=== PATIENT | female | born 1950 | race Caucasian/White ===

== ENCOUNTER 2021-04-10 14:29 | Emergency (ER) | payer MEDICARE ==
--- NOTE | 2021-04-10 14:58 | EDM.PDOC ---
ED HPI GENERAL MEDICAL PROBLEM - General Chief Complaint: Cardiovascular Problem Stated Complaint: BP ISSUE S Time Seen by Provider: 04/10/21 14:50 Source of Information: Reports: Patient, Old Records, RN Notes Reviewed History Limitations: Reports: No Limitations - History of Present Illness INITIAL COMMENTS - FREE TEXT/NARRATIVE: 70-year-old female presents to the emergency department today with complaint of blood pressure problem. She states she has had blood pressure problems in the clinic for over the last year blood pressure has been running 160 170 systolic. She took her blood pressure today and noticed it was well over 200 she feels somewhat dizzy fall in the head elevated blood pressure no other symptoms at this time - Related Data Allergies Allergy/AdvReac Type Severity Reaction Status Date / Time ibuprofen Allergy Severe Difficulty Verified 04/10/21 14:42 Breathing Penicillins Allergy Hives Verified 04/10/21 14:43 Home Meds: Home Meds Aspirin 325 mg PO BID PRN 02/17/15 [History] [place]-3 Fatty Acids/Fish Oil [Fish Oil 1,000 mg Capsule] 1 cap PO DAILY 09/15/20 [History] lisinopriL [Lisinopril] 10 mg PO DAILY #30 tablet 04/10/21 [Rx] Past Medical History Cardiovascular History: Reports: Hypertension - Past Surgical History Other HEENT Surgeries/Procedures: lasik Social & Family History - Tobacco Use Tobacco Use Status *Q: Never Tobacco User - Alcohol Use Number of Drinks Per Day: 1 - Recreational Drug Use Recreational Drug Use: Yes Recreational Drug Type: Reports: Marijuana/Hashish Recreational Drug Use Frequency: Daily ED ROS GENERAL - Review of Systems Review Of Systems: See Below Constitutional: Reports: No Symptoms HEENT: Reports: No Symptoms Respiratory: Reports: No Symptoms Cardiovascular: Reports: Blood Pressure Problem, Lightheadedness GI/Abdominal: Reports: No Symptoms ED EXAM, GENERAL - Physical Exam Exam: See Below Exam Limited By: No Limitations General Appearance: Alert, WD/WN, No Apparent Distress Respiratory/Chest: No Respiratory Distress, Lungs Clear, Normal Breath Sounds, No Accessory Muscle Use, Chest Non-Tender Cardiovascular: Regular Rate, Rhythm, No Murmur GI/Abdominal: Soft, Non-Tender Course - Vital Signs Last Recorded V/S: Last Vital Signs Temp 97.6 F 04/10/21 14:47 Pulse 64 04/10/21 15:52 Resp 11 L 04/10/21 15:52 BP 153/71 H 04/10/21 16:00 Pulse Ox 99 04/10/21 14:47 - Orders/Labs/Meds Orders: Active Orders 24 hr Category Date Time Status Cardiac Monitoring [RC] .As Directed Care 04/10/21 14:56 Active Peripheral IV Care [RC] . DIRECTED Care 04/10/21 14:56 Active Sodium Chloride 0.9% [Saline Flush] Med 04/10/21 14:56 Active 10 ml FLUSH ASDIRECTED PRN Peripheral IV Insertion Adult [OM.PC] Stat Oth 04/10/21 14:56 Ordered Saline Lock Insert [OM.PC] Stat Oth 04/10/21 14:56 Ordered EKG 12 Lead [EK] Stat Ther 04/10/21 14:56 Ordered Medication Orders Sodium Chloride (Sodium Chloride 0.9% 10 Ml Syringe) 10 ml FLUSH ASDIRECTED PRN PRN Reason: Keep Vein Open Last Admin: 04/10/21 15:05 Dose: 10 ml Documented by: ARIN Labs: Laboratory Tests 04/10/21 04/10/21 04/10/21 Range/Units 15:00 15:00 15:05 WBC 5.3 (4.5-11.0) K/uL RBC 4.29 (3.30-5.50) M/uL Hgb 13.0 (12.0-15.0) g/dL Hct 40.5 (36.0-48.0) % MCV 94 (80-98) fL MCH 30 (27-31) pg MCHC 32 (32-36) % Plt Count 292 (150-400) K/uL Neut % (Auto) 50.4 (36-66) % Lymph % (Auto) 35.4 (24-44) % Jerome % (Auto) 10.6 H (2-6) % Eos % (Auto) 2.8 (2-4) % Baso % (Auto) 0.8 (0-1) % Sodium 142 (140-148) mmol/L Potassium 4.3 (3.6-5.2) mmol/L Chloride 104 (100-108) mmol/L Carbon Dioxide 28 (21-32) mmol/L Anion Gap 10.0 (5.0-14.0) mmol/L BUN 14 (7-18) mg/dL Creatinine 0.8 (0.6-1.0) mg/dL Est Cr Clr Drug Dosing 47.97 mL/min Estimated GFR (MDRD) > 60 (>60) Glucose 100 (74-106) mg/dL Calcium 9.1 (8.5-10.1) mg/dL Total Bilirubin 0.3 (0.2-1.0) mg/dL AST 15 (15-37) U/L ALT 21 (12-78) U/L Alkaline Phosphatase 51 (46-116) U/L Troponin I < 0.017 (0.000-0.056) ng/mL Total Protein 6.9 (6.4-8.2) g/dL Albumin 3.8 (3.4-5.0) g/dL Globulin 3.1 (2.3-3.5) g/dL Albumin/Globulin Ratio 1.2 (1.2-2.2) Urine Color Yellow (YELLOW) Urine Appearance Clear (CLEAR) Urine pH 7.0 (5.0-8.0) Ur Specific [place] >= 1.030 (1.008-1.030) Urine Protein Negative (NEGATIVE) mg/dL Urine Glucose (UA) Negative (NEGATIVE) mg/dL Urine Ketones Negative (NEGATIVE) mg/dL Urine Occult Blood Negative (NEGATIVE) Urine Nitrite Negative (NEGATIVE) Urine Bilirubin Negative (NEGATIVE) Urine Urobilinogen 0.2 (0.2-1.0) EU/dL Ur Leukocyte Esterase Negative (NEGATIVE) Urine RBC Not seen (0-5) Urine WBC Not seen (0-5) Ur Epithelial Cells Few Urine Bacteria Rare Urine Mucus Rare Meds: Medications Generic Name Dose Route Start Last Admin Trade Name [place] PRN Reason Stop Dose Admin Sodium Chloride 10 ml 04/10/21 14:56 04/10/21 15:05 Sodium Chloride 0.9% 10 Ml Syringe FLUSH 10 ml ASDIRECTED PRN Administration Keep Vein Open Discontinued Medications Generic Name Dose Route Start Last Admin Trade Name Freq PRN Reason Stop Dose Admin Enalaprilat 1.25 mg 04/10/21 15:35 04/10/21 15:56 Enalaprilat 1.25 Mg/Ml Sdv IVPUSH 04/10/21 15:36 Not Given ONETIME ONE Lisinopril 10 mg 04/10/21 15:55 04/10/21 16:00 Lisinopril 10 Mg Tab PO 04/10/21 15:56 10 mg ONETIME ONE Administration Departure - Departure Time of Disposition: 16:53 Disposition: Home, Self-Care 01 Condition: Fair Clinical Impression: Essential hypertension Prescriptions: lisinopriL [Lisinopril] 10 mg PO DAILY #30 tablet Instructions: Preventing Hypertension, Hypertension, Adult Referrals: PCP,None [Primary Care Provider] - Forms: ED Department Discharge Additional Instructions: Start your lisinopril tomorrow, please make an appointment to follow-up with your primary care in the next 5 to 7 days, call return to the emergency department worsening symptoms Sepsis Event Note (ED) - Evaluation Sepsis Screening Result: No Definite Risk - Focused Exam Vital Signs: Vital Signs Temp Pulse Resp BP BP Pulse Ox 04/10/21 16:00 153/71 H 04/10/21 15:56 153/71 H 04/10/21 15:52 64 11 L 153/71 H 04/10/21 15:10 68 15 183/89 H 04/10/21 14:47 97.6 F 81 14 228/91 H 99 04/10/21 14:42 97.6 F 81 14 228/91 H 99 - My Orders Last 24 Hours: My Active Orders 04/10/21 14:56 Cardiac Monitoring [RC] .As Directed Peripheral IV Care [RC] . DIRECTED Sodium Chloride 0.9% [Saline Flush] 10 ml FLUSH ASDIRECTED PRN Peripheral IV Insertion Adult [OM.PC] Stat Saline Lock Insert [OM.PC] Stat EKG 12 Lead [EK] Stat - Assessment/Plan Last 24 Hours: My Active Orders 04/10/21 14:56 Cardiac Monitoring [RC] .As Directed Peripheral IV Care [RC] . DIRECTED Sodium Chloride 0.9% [Saline Flush] 10 ml FLUSH ASDIRECTED PRN Peripheral IV Insertion Adult [OM.PC] Stat Saline Lock Insert [OM.PC] Stat EKG 12 Lead [EK] Stat Plan: Assessment Acuity = acute Site and laterality = essential hypertension Etiology = unknown Manifestations = none Location of injury = Home Lab values = CBC, CMP, troponin all within normal limits EKG demonstrates normal sinus rhythm no ST elevations or depressions Plan Her blood pressure initially fell by itself from 2 30-1 70 started lisinopril 10 mg once a day prescription faxed to [facility] pharmacy she will follow-up with primary care in the next 5 to 7 days This note was dictated using [employer] voice recognition software please call with any questions on syntax or grammar.
[2021-04-10] MEDS: Sodium Chloride 0.9% 10 ML Syringe FLUSH PRN (15:05)
[2021-04-10] MEDS: Enalaprilat 1.25 MG/ML SDV IVPUSH ONE (15:56)
[2021-04-10] MEDS: Lisinopril 10 MG Tab PO ONE (16:00)
[2021-04-10 16:57] VITALS: BP 162/73; PULSE 65
== END 2021-04-10 17:09 | disposition home or self-care (01) ==
LOC: JP.ED 14:29
DX: I10 Essential (primary) hypertension (principal); Z88.6 Allergy status to analgesic agent; Z88.0 Allergy status to penicillin; Z79.82 Long term (current) use of aspirin; Z79.899 Other long term (current) drug therapy
CPT/HCPCS: 36415; 80053; 81001; 84484; 85025; 93005; 99283; A9270

== ENCOUNTER 2024-04-29 10:11 | Emergency (ER) | payer MEDICARE ==
[2024-04-29 11:09] LABS: BASOPHILS ABSOLUTE AUTO 0.05 K/uL (0.00-0.10); BASOPHILS PERCENT AUTO 0.7 % (0.1-1.3); EOSINOPHILS ABSOLUTE AUTO 0.08 K/uL (0.00-0.40); EOSINOPHILS PERCENT AUTO 1.1 % (0.0-5.4); HEMATOCRIT 39.5 % (34.3-46.0); IMMATURE GRAN ABSOLUTE AUTO 0.04 K/uL (0.00-0.23); IMMATURE GRAN PERCENT AUTO 0.6 % (0.0-0.7); LYMPHOCYTES ABSOLUTE AUTO 1.61 K/uL (0.8-3.3); LYMPHOCYTES PERCENT AUTO 23.1 % (11.4-47.7); MEAN CORPUSCULAR HEMOGLOBIN 31.4 pg (31.6-35.5); MEAN CORPUSCULAR HGB CONC 32.9 g/dL (31.6-35.5); MEAN CORPUSCULAR VOLUME 95.4 fL (81.4-99.0); MONOCYTES ABSOLUTE AUTO 0.57 K/uL (0.20-0.90); MONOCYTES PERCENT AUTO 8.2 % (3.3-12.6); NEUTROPHILS ABSOLUTE AUTO 4.63 K/uL (1.0-7.6); NEUTROPHILS PERCENT AUTO 66.3 % (40.0-78.1); PLATELET COUNT,PLT 242 K/uL (130-375); RED BLOOD CELL COUNT 4.14 M/uL (3.77-5.24)
[2024-04-29 11:30] LABS: A/G RATIO 1.1 (1.2-2.2); ALANINE AMINOTRANSFERASE,ALT 17 U/L (12-78); ALBUMIN 3.9 g/dL (3.4-5.0); ALKALINE PHOSPHATASE 53 U/L (46-116); ASPARTATE AMNIOTRANSFERASE,AST 14 U/L (15-37); BILIRUBIN TOTAL 0.7 mg/dL (0.2-1.0); BLOOD UREA NITROGEN,BUN 26 mg/dL (7-18); CALCIUM 9.4 mg/dL (8.5-10.1); CARBON DIOXIDE,CO2 29 mmol/L (21-32); CHLORIDE,CL 101 mmol/L (100-108); EST CRCL DRUG DOSING (CG) 38.44 mL/min; ESTIMATED GFR 59 mL/min (>60); GLUCOSE RANDOM 109 mg/dL (74-106); POTASSIUM,K 4.6 mmol/L (3.6-5.2); PROTEIN TOTAL,TP 7.3 g/dL (6.4-8.2); SODIUM,NA 139 mmol/L (140-148)
[2024-04-29 11:31] LABS: ANION GAP 13.6 mmol/L (5.0-14.0)
[2024-04-29 11:53] VITALS: BP 113/60; PULSE 68
== END 2024-04-29 11:54 | disposition home or self-care (01) ==
LOC: JP.ED 10:11
DX: K20.90 Esophagitis, unspecified without bleeding (principal); R10.11 Right upper quadrant pain; I10 Essential (primary) hypertension; F17.210 Nicotine dependence, cigarettes, uncomplicated; Z88.0 Allergy status to penicillin; Z88.8 Allergy status to other drugs, medicaments and biological substances; Z79.899 Other long term (current) drug therapy
CPT/HCPCS: 36415; 80053; 83690; 85025; 93005; 93010; 99283; 99284